=== PATIENT | male | born 1990 | race American Indian/Alaskan Native ===

== ENCOUNTER 2017-06-14 23:13 | Emergency (ER) | payer SELFPAY ==
[2017-06-14 23:18] VITALS: TEMP 98.2
--- NOTE | 2017-06-15 01:41 | ED PDOC ---
HPI: General Adult Time Seen by Provider: 06/14/17 23:42 Chief Complaint (Nursing): Foreign Body History Per: Patient History/Exam Limitations: no limitations Onset/Duration Of Symptoms: Hrs Have you had recent travel within the past 21 days to any of the following countries: [place], [place], [place] or [place]?: No Current Symptoms Are (Timing): Better Severity: Mild Additional Complaint(s): Patient with no pmhx p/w "steak stuck in throat". States he was eating steak, was able to swallow first bite but states on the second bite he did not chew well enough and he felt the food get stuck in his throat. Had no difficulty breathing, but was unable to tolerate fluids. States that he is now able to tolerate fluids without vomiting upon arrival to ER. Denies abdominal pain. Past Medical History Reviewed: Historical Data, Nursing Documentation, Vital Signs Vital Signs: Last Vital Signs Temp 98.2 F 06/14/17 23:16 Pulse 92 H 06/14/17 23:16 Resp 16 06/14/17 23:16 BP 135/67 06/14/17 23:16 Pulse Ox 100 06/14/17 23:16 - Medical History PMH: No Chronic Diseases - Family History Family History: States: Unknown Family Hx - Allergies Allergies/Adverse Reactions: Allergies Allergy/AdvReac Type Severity Reaction Status Date / Time No Known Allergies Allergy Verified 06/14/17 23:16 Review of Systems ROS Statement: Except As Marked, All Systems Reviewed And Found Negative Physical Exam - Reviewed Nursing Documentation Reviewed: Yes Vital Signs Reviewed: Yes - Physical Exam Appears: Positive for: Well, Non-toxic, No Acute Distress Head Exam: Positive for: ATRAUMATIC, NORMAL INSPECTION, NORMOCEPHALIC Skin: Positive for: Normal Color, Warm, DRY Eye Exam: Positive for: EOMI, Normal appearance, PERRL ENT: Positive for: Normal ENT Inspection Neck: Positive for: Normal, Painless ROM Cardiovascular/Chest: Positive for: Regular Rate, Rhythm Respiratory: Positive for: CNT, Normal Breath Sounds Gastrointestinal/Abdominal: Positive for: Normal Exam, Bowel Sounds, Soft Back: Positive for: Normal Inspection Extremity: Positive for: Normal ROM Neurologic/Psych: Positive for: Alert, Oriented - ECG O2 Sat by Pulse Oximetry: 100 Pulse Ox Interpretation: Normal Medical Decision Making Medical Decision Making: Patient came in for possible food impaction, however patient is feeling better, airway intact, able to swallow water without vomiting. Advised patient to drink water slowly and to return to ER if vomiting persists or any other concerning symptoms develop, such as difficulty breathing. Patient well appearing, normal gait upon discharge. Disposition - Clinical Impression Clinical Impression: Sensation of foreign body - Patient ED Disposition Is Patient to be Admitted: No - Disposition Referrals: [facility] [Outside] Disposition: Routine/Home Disposition Time: 01:44 Condition: IMPROVED Instructions: Foreign Body, Swallowed, Adult, Food Obstruction Forms: [facility] (Faroese), [facility] ED School/Work Excuse
[2017-06-15 02:01] VITALS: BP 122/70; PULSE 86; RESP 18; O2SAT 99
== END 2017-06-15 02:13 | disposition home or self-care (01) ==
LOC: H.ER 23:13
DX: R09.89 Other specified symptoms and signs involving the circulatory and respiratory systems (principal)